=== PATIENT | female | born 1980 | race Asian ===

== ENCOUNTER → 2020-04-20 | Outpatient (CLI) | payer BC, SELFPAY ==
[2020-04-20 14:31] LABS: HIV - WCH Non-Reactive (Nonreactive); Hepatitis B Surface Antigen Non-Reactive (Nonreactive); Hepatitis C Antibody Non-Reactive (Nonreactive)
[2020-04-22 02:16] LABS: Rapid Plasmin Reagin (RPR) NONREACTIVE (NONREACTIVE)
[2020-04-22 03:06] LABS: Chlamydia By Nucleic Acid AMP Negative (Negative)
[2020-04-22 11:29] LABS: Gonococcus By Nucleic Acid AMP Negative (Negative)
[2020-04-23 16:29] LABS: HPV APTIMA, High Risk Negative (Negative)
== END | disposition home or self-care (01) ==
PROVIDERS: Visit Provider Obstetrics & Gynecology
DX: Z12.4 Encounter for screening for malignant neoplasm of cervix (principal); Z11.3 Encounter for screening for infections with a predominantly sexual mode of transmission
CPT/HCPCS: 36415; 86592; 86703; 86803; 87340; 87491; 87591; 87624; 88175; G0145

== ENCOUNTER → 2025-05-06 | Outpatient (CLI) | payer OTHER, SELFPAY ==
--- NOTE | 2025-05-06 13:41 | NEURO_ITS ---
NCS and/or EMG Patient Report Ordering Doctor: Stephanie Palomo NP DATE OF SERVICE: 05/06/25 Maciel presents complaints of numbness and tingling in both arms. Electrodiagnostic findings: Right median motor nerve demonstrates normal distal latency, amplitude and conduction velocity. Left median motor nerve demo nstrates normal distal latency, amplitude and conduction velocity. Ulnar motor response within normal limits bilaterally. Normal median and ulnar F?waves. Sensory responses are within normal limits. Needle EMG testing was performed upper limbs. All muscles tested showed no evidence of denervation with normal motor unit action potentials. Electrodiagnostic impression: This is a normal electrodiagnostic study of the upper limbs. There is no electrodiagnostic evidence for peripheral neuropathy, including carpal tunnel syndrome. There is no electrodiagnostic evidence for cervical radiculopathy Multi Select Codes Neurology Neurology Interp Codes: 60108-07 Musc test done w/n test comp (interp) (2) and 08252-81 Nrv cndj test 13/> studies (interp)
== END | disposition home or self-care (01) ==
PROVIDERS: PCP Nurse Practitioner Family; Referring Provider Nurse Practitioner Family; Visit Provider Nurse Practitioner Family
DX: R20.2 Paresthesia of skin (principal); G62.9 Polyneuropathy, unspecified; R53.1 Weakness
CPT/HCPCS: 95886; 95913

== ENCOUNTER → 2025-05-20 | Outpatient (CLI) | payer OTHER, SELFPAY ==
--- NOTE | 2025-05-20 13:44 | NEURO ---
NCS and/or EMG Patient Report Ordering Doctor: Stephanie Palomo NP DATE OF SERVICE: 05/20/25 Maciel presents for weakness in the legs. She reports occasional numbness and tingling. Electrodiagnostic findings. Left peroneal motor nerve demonstrates normal distal latency, amplitude and conduction velocity. Right peroneal motor nerve demonstrates normal distal latency, amplitude and conduction velocity. Tibial motor response within normal limits bilaterally. Absent sural latency is noted bilaterally. Normal superficial peroneal response. Peroneal and tibial F?waves are normal. Normal H?reflux bilaterally. Needle EMG testing was performed the lower limbs. All muscles tested showed no evidence of denervation with normal motor unit action potentials. Electrodiagnostic impression: This is an abnormal study of the lower limbs 1. 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 2. No electrodiagnostic evidence is noted for lumbosacral radiculopathy. Multi Select Codes Neurology Neurology Interp Codes: 73591-72 Musc test done w/n test comp (interp) (2) and 66379-72 Nrv cndj test 9-10 studies (interp)
== END | disposition home or self-care (01) ==
LOC: PSN 11:59
PROVIDERS: PCP Nurse Practitioner Family; Referring Provider Nurse Practitioner Family; Visit Provider Nurse Practitioner Family
DX: R20.2 Paresthesia of skin (principal); R53.1 Weakness; G62.9 Polyneuropathy, unspecified
CPT/HCPCS: 95886; 95911